=== PATIENT | male | born 1940 | race Caucasian/White ===

== ENCOUNTER 2019-05-18 15:39 | Inpatient (IN) ==
[2019-05-18 16:00] LABS: Basophils # 0.1 K/mcL (0.0-0.2); Basophils % 0.3 %; Eosinophils % 0.1 %; Hematocrit 39.3 % (37.5-50.1); Hemoglobin 13.6 g/dL (12.9-16.9); Immature Granulocytes % 0.3 % (0-4); Lymphocytes # 0.8 K/mcL (0.6-4.6); Lymphocytes % 4.8 %; Mean Corpuscular HGB Conc 34.6 g/dL (31.6-35.5); Mean Corpuscular Hemoglobin 32.5 pg (28.0-33.3); Mean Corpuscular Volume 93.8 fL (83.0-100.0); Mean Platelet Volume 9.1 fL (9.4-12.4); Monocytes # 1.3 K/mcL (0.0-1.3); Monocytes % 7.5 %; Neutrophils # 15.2 K/mcL (1.6-8.9); Platelet Count 267 K/mcL (140-400); Red Blood Count 4.19 M/mcL (4.19-5.50); Red Cell Distribution Width 11.8 % (11.5-14.5); White Blood Count 17.4 K/mcL (4.3-11.1)
[2019-05-18 16:02] LABS: INR 1.1; Prothrombin Time 12.2 Seconds (9.4-12.1)
[2019-05-18 16:05] LABS: Activated Partial Thrombo Time 30.6 Seconds (26.0-36.0)
[2019-05-18 16:20] LABS: BUN/Creatinine Ratio 26 (6-26); Blood Urea Nitrogen 24 mg/dL (8-23); Calcium 9.6 mg/dL (8.6-10.3); Carbon Dioxide 25 mEq/L (23-29); Chloride 104 mEq/L (98-107); Glucose 329 mg/dL (70-105); Osmolality,Calculated 303 (280-300); Potassium 4.4 mEq/L (3.5-5.1); Sodium 138 mEq/L (136-145); Troponin I < 0.03 ng/mL (< 0.04); eGFR For African Americans > 60 (> 60); eGFR For Non-African Americans > 60 (> 60)
[2019-05-18] MEDS ORDERED: *HR* OxyCODONE/APAP 5/325 TABLET PO ONE (17:31)
[2019-05-18] MEDS ORDERED: Naloxone 0.4 MG/ML INJ IVP PRN (17:42)
[2019-05-18] MEDS ORDERED: 0.9 % Sodium Chloride w KCl 20 MEQ/1,000 ML MLS IVC SCH (17:45)
[2019-05-18] MEDS ORDERED: Morphine Sulfate 2 MG/ML SYRINGE IVP PRN (17:45)
[2019-05-18] MEDS ORDERED: Carbidopa/Levodopa ER 50/200 TABLET PO SCH (21:00)
[2019-05-19] MEDS ORDERED: Insulin DETEMIR 100 UNIT/ML X5UNITS SQ ONE (08:39)
[2019-05-19 09:26] LABS: Basophils % 0.3 %; Eosinophils % 0.1 %; Hematocrit 35.4 % (37.5-50.1); Immature Granulocytes % 0.2 % (0-4); Lymphocytes # 0.9 K/mcL (0.6-4.6); Lymphocytes % 8.9 %; Mean Corpuscular HGB Conc 33.9 g/dL (31.6-35.5); Mean Corpuscular Hemoglobin 32.8 pg (28.0-33.3); Mean Corpuscular Volume 96.7 fL (83.0-100.0); Mean Platelet Volume 9.2 fL (9.4-12.4); Monocytes % 9.8 %; Neutrophils # 8.2 K/mcL (1.6-8.9); Platelet Count 260 K/mcL (140-400); Red Blood Count 3.66 M/mcL (4.19-5.50); Red Cell Distribution Width 12.1 % (11.5-14.5); Segmented Neutrophils % 80.7 %; White Blood Count 10.2 K/mcL (4.3-11.1)
[2019-05-19 09:44] LABS: BUN/Creatinine Ratio 27 (6-26); Blood Urea Nitrogen 24 mg/dL (8-23); Calcium 9.1 mg/dL (8.6-10.3); Carbon Dioxide 25 mEq/L (23-29); Chloride 106 mEq/L (98-107); Glucose 229 mg/dL (70-105); Osmolality,Calculated 299 (280-300); Potassium 4.3 mEq/L (3.5-5.1); Sodium 139 mEq/L (136-145); eGFR For African Americans > 60 (> 60); eGFR For Non-African Americans > 60 (> 60)
[2019-05-19] MEDS: Metoprolol XL (24 HR) Succ 50 MG TAB.ER.24H PO SCH (09:51)
[2019-05-19] MEDS: Carbidopa/Levodopa ER 50/200 TABLET PO SCH ×2 (09:51→20:03)
[2019-05-19] MEDS: Cholecalciferol (D-3) 1,000 UNIT (25MCG) TABLET PO SCH (09:51)
[2019-05-19] MEDS: Multivit/Ca/Min/Fe/FA 1 TAB TABLET PO SCH (09:51)
[2019-05-19] MEDS: Insulin LISPRO 300 UNITS/3 ML VIAL SQ SCH ×3 (12:29→19:41)
[2019-05-19] MEDS ORDERED: *HR* Dextrose 50 % in Water (Syg) 50 ML SYRINGE IVP PRN (15:03)
[2019-05-19] MEDS ORDERED: Dextrose Gel 15 GM/37.5 ML TUBE PO PRN ×2 (15:03)
[2019-05-19] MEDS ORDERED: D5% in Water 1,000 ML IVC PRN (15:03)
[2019-05-19] MEDS: Insulin DETEMIR 100 UNIT/ML X5UNITS SQ SCH (20:03)
[2019-05-20 01:10] LABS: Basophils # 0.1 K/mcL (0.0-0.2); Basophils % 0.4 %; Eosinophils % 0.2 %; Hematocrit 33.7 % (37.5-50.1); Hemoglobin 11.6 g/dL (12.9-16.9); Immature Granulocytes % 0.3 % (0-4); Lymphocytes # 1.1 K/mcL (0.6-4.6); Lymphocytes % 7.9 %; Mean Corpuscular HGB Conc 34.4 g/dL (31.6-35.5); Mean Corpuscular Hemoglobin 33.4 pg (28.0-33.3); Mean Corpuscular Volume 97.1 fL (83.0-100.0); Mean Platelet Volume 9.3 fL (9.4-12.4); Monocytes # 1.2 K/mcL (0.0-1.3); Monocytes % 8.7 %; Neutrophils # 11.6 K/mcL (1.6-8.9); Platelet Count 256 K/mcL (140-400); Red Blood Count 3.47 M/mcL (4.19-5.50); Red Cell Distribution Width 12.2 % (11.5-14.5); Segmented Neutrophils % 82.5 %
[2019-05-20] MEDS: Insulin LISPRO 300 UNITS/3 ML VIAL SQ SCH ×4 (08:33→21:19)
[2019-05-20] MEDS: Multivit/Ca/Min/Fe/FA 1 TAB TABLET PO SCH (08:34)
[2019-05-20] MEDS: Carbidopa/Levodopa ER 50/200 TABLET PO SCH ×2 (08:34→20:18)
[2019-05-20] MEDS: Cholecalciferol (D-3) 1,000 UNIT (25MCG) TABLET PO SCH (08:34)
[2019-05-20] MEDS: Metoprolol XL (24 HR) Succ 50 MG TAB.ER.24H PO SCH (08:34)
[2019-05-20 14:37] LABS: Bilirubin,Urine Negative (Negative); Blood,Urine Negative (Negative); Clarity,Urine Clear (Clear); Color,Urine Yellow (Yellow); Glucose,Urine (UA) 250 mg/dL (Normal); Ketones,Urine Negative (Negative); Leukocyte Esterase,Urine Negative (Negative); Nitrite,Urine Negative (Negative); Protein,Urine Negative (Neg-Trace); Urobilinogen,Urine Normal (Normal)
[2019-05-20] MEDS: Insulin DETEMIR 100 UNIT/ML X5UNITS SQ SCH (20:19)
[2019-05-20] MEDS ORDERED: *HR* LORazepam 2 MG/ML VIAL IVP ONE (22:08)
[2019-05-20] MEDS ORDERED: *HR* LORazepam 2 MG/ML VIAL ONE (22:10)
[2019-05-21] MEDS ORDERED: Furosemide 40 MG/4 ML VIAL IVP ONE (00:39)
[2019-05-21 01:11] LABS: BUN/Creatinine Ratio 41 (6-26); Blood Urea Nitrogen 39 mg/dL (8-23); Calcium 9.6 mg/dL (8.6-10.3); Carbon Dioxide 27 mEq/L (23-29); Chloride 103 mEq/L (98-107); Glucose 146 mg/dL (70-105); Osmolality,Calculated 294 (280-300); Potassium 4.2 mEq/L (3.5-5.1); Sodium 136 mEq/L (136-145); eGFR For African Americans > 60 (> 60); eGFR For Non-African Americans > 60 (> 60)
[2019-05-21 01:13] LABS: Troponin I < 0.03 ng/mL (< 0.04)
[2019-05-21 04:49] LABS: White Blood Count 11.7 K/mcL (4.3-11.1)
[2019-05-21 04:50] LABS: Basophils % 0.3 %; Eosinophils # 0.1 K/mcL (0.0-0.6); Eosinophils % 0.9 %; Hematocrit 32.3 % (37.5-50.1); Hemoglobin 10.8 g/dL (12.9-16.9); Immature Granulocytes % 0.3 % (0-4); Lymphocytes # 1.1 K/mcL (0.6-4.6); Mean Corpuscular HGB Conc 33.4 g/dL (31.6-35.5); Mean Corpuscular Hemoglobin 32.1 pg (28.0-33.3); Mean Corpuscular Volume 96.1 fL (83.0-100.0); Mean Platelet Volume 9.2 fL (9.4-12.4); Monocytes # 0.8 K/mcL (0.0-1.3); Monocytes % 6.9 %; Neutrophils # 9.7 K/mcL (1.6-8.9); Platelet Count 259 K/mcL (140-400); Red Blood Count 3.36 M/mcL (4.19-5.50); Segmented Neutrophils % 82.6 %
[2019-05-21 05:09] LABS: BUN/Creatinine Ratio 38 (6-26); Blood Urea Nitrogen 38 mg/dL (8-23); Calcium 9.9 mg/dL (8.6-10.3); Carbon Dioxide 28 mEq/L (23-29); Chloride 102 mEq/L (98-107); Glucose 75 mg/dL (70-105); Osmolality,Calculated 296 (280-300); Potassium 3.6 mEq/L (3.5-5.1); Sodium 139 mEq/L (136-145); eGFR For African Americans > 60 (> 60); eGFR For Non-African Americans > 60 (> 60)
[2019-05-21] MEDS ORDERED: Ipratropium/Albuterol Neb 3 ML IH STA (06:46)
[2019-05-21] MEDS: Metoprolol XL (24 HR) Succ 50 MG TAB.ER.24H PO SCH (06:50)
[2019-05-21] MEDS ORDERED: *HR* Propofol 200 MG/20 ML VIAL IVP ONE (07:01)
[2019-05-21] MEDS ORDERED: *HR* FentaNYL (PF) 100 MCG/2 ML VIAL ONE (07:02)
[2019-05-21] MEDS ORDERED: Lidocaine -MPF 2% 2 ML VIAL ONE (07:02)
[2019-05-21] MEDS ORDERED: Ondansetron 4 MG/2 ML VIAL ONE (07:02)
[2019-05-21] MEDS ORDERED: Dexamethasone 4 MG/ML VIAL ONE (07:02)
[2019-05-21] MEDS ORDERED: *HR* Midazolam HCl 2 MG/2 ML VIAL ONE (07:02)
[2019-05-21] MEDS ORDERED: *HR* Succinylcholine 200 MG/10 ML VIAL IVP ONE (07:02)
[2019-05-21] MEDS ORDERED: *HR* Rocuronium Bromide 50 MG/5 ML VIAL ONE (07:02)
[2019-05-21] MEDS ORDERED: Ethanol\\Acetic Acid\\Na Ace\\Ben 1,000 ML IRRIG.SOLN IR ONE (07:03)
[2019-05-21] MEDS: Insulin LISPRO 300 UNITS/3 ML VIAL SQ SCH ×4 (07:30→20:43)
[2019-05-21] MEDS ORDERED: Acetaminophen IV 1,000 MG/100 ML INFUS..BTL ONE (07:42)
[2019-05-21] MEDS ORDERED: *HR* Etomidate 40 MG/20 ML VIAL IVP ONE (07:54)
[2019-05-21] MEDS ORDERED: *HR* PHENYLEPHRINE 1,000 MCG/10 ML SYRINGE IVP ONE ×2 (08:07→08:56)
[2019-05-21] MEDS ORDERED: CeFAZolin Syr 2,000MG/20 ML 2,000 MG/20 ML SYRINGE IVPB ONE (08:13)
[2019-05-21] MEDS ORDERED: *HR* HYDROMORPHONE 2 MG/ML VIAL ONE (08:50)
[2019-05-21] MEDS ORDERED: *HR* Dextrose 50 % in Water (Syg) 50 ML SYRINGE IVP PRN (10:56)
[2019-05-21] MEDS ORDERED: Ondansetron 4 MG/2 ML VIAL IVP PRN (10:56)
[2019-05-21] MEDS ORDERED: MOM Conc 10 ML UD.LIQ PO PRN (10:56)
[2019-05-21] MEDS ORDERED: Sennosides 8.6 MG TABLET PO PRN (10:56)
[2019-05-21] MEDS ORDERED: D5% in Water 1,000 ML IVC PRN (10:56)
[2019-05-21] MEDS ORDERED: Dextrose Gel 15 GM/37.5 ML TUBE PO PRN ×2 (10:56)
[2019-05-21] MEDS ORDERED: Naloxone 0.4 MG/ML INJ IVP PRN (10:56)
[2019-05-21] MEDS ORDERED: Isovue-370 500 ML BOTTLE IVP ONE (11:15)
[2019-05-21] MEDS: Piperacillin/Tazobactam 3.375 GM in 0.9 % Sodium Chloride Mini Bag 100 ML IVPB SCH ×2 (12:30→20:40)
[2019-05-21] MEDS ORDERED: ceFAZolin 2,000 MG in 0.9 % Sodium Chloride 100 ML IVPB SCH (16:00)
[2019-05-21] MEDS: Ringers Solution, Lactated 1,000 ML IVC SCH (17:42)
[2019-05-21] MEDS: Insulin DETEMIR 100 UNIT/ML X5UNITS SQ SCH (20:39)
[2019-05-21] MEDS: Carbidopa/Levodopa ER 50/200 TABLET PO SCH (20:41)
[2019-05-22 02:23] LABS: Eosinophils % 0.1 %; Hematocrit 28.3 % (37.5-50.1); Hemoglobin 9.6 g/dL (12.9-16.9); Immature Granulocytes % 0.1 % (0-4); Lymphocytes # 0.6 K/mcL (0.6-4.6); Lymphocytes % 6.3 %; Mean Corpuscular HGB Conc 33.9 g/dL (31.6-35.5); Mean Corpuscular Hemoglobin 33.1 pg (28.0-33.3); Mean Corpuscular Volume 97.6 fL (83.0-100.0); Mean Platelet Volume 9.7 fL (9.4-12.4); Monocytes # 0.8 K/mcL (0.0-1.3); Monocytes % 8.2 %; Neutrophils # 7.9 K/mcL (1.6-8.9); Platelet Count 240 K/mcL (140-400); Red Cell Distribution Width 11.9 % (11.5-14.5); Segmented Neutrophils % 85.3 %; White Blood Count 9.2 K/mcL (4.3-11.1)
[2019-05-22 03:11] LABS: BUN/Creatinine Ratio 43 (6-26); Blood Urea Nitrogen 36 mg/dL (8-23); Calcium 8.6 mg/dL (8.6-10.3); Carbon Dioxide 22 mEq/L (23-29); Chloride 105 mEq/L (98-107); Glucose 117 mg/dL (70-105); Osmolality,Calculated 293 (280-300); Sodium 137 mEq/L (136-145); eGFR For African Americans > 60 (> 60); eGFR For Non-African Americans > 60 (> 60)
[2019-05-22] MEDS: Piperacillin/Tazobactam 3.375 GM in 0.9 % Sodium Chloride Mini Bag 100 ML IVPB SCH ×3 (04:43→21:17)
[2019-05-22] MEDS: *HR* OxyCODONE/APAP 5/325 TABLET PO PRN ×2 (08:12→23:50)
[2019-05-22] MEDS: Multivit/Ca/Min/Fe/FA 1 TAB TABLET PO SCH (08:13)
[2019-05-22] MEDS: Carbidopa/Levodopa ER 50/200 TABLET PO SCH ×2 (08:13→21:17)
[2019-05-22] MEDS: Metoprolol XL (24 HR) Succ 50 MG TAB.ER.24H PO SCH (08:13)
[2019-05-22] MEDS: Cholecalciferol (D-3) 1,000 UNIT (25MCG) TABLET PO SCH (08:13)
[2019-05-22] MEDS: Insulin LISPRO 300 UNITS/3 ML VIAL SQ SCH ×4 (08:14→21:16)
[2019-05-22] MEDS ORDERED: Haloperidol Lactate 5 MG/ML VIAL IVP ONE (14:27)
[2019-05-22] MEDS: Ringers Solution, Lactated 1,000 ML IVC SCH (16:25)
[2019-05-22] MEDS: Insulin DETEMIR 100 UNIT/ML X5UNITS SQ SCH (23:51)
[2019-05-23 02:33] LABS: Basophils % 0.2 %; Eosinophils # 0.1 K/mcL (0.0-0.6); Eosinophils % 1.5 %; Hematocrit 27.4 % (37.5-50.1); Hemoglobin 9.5 g/dL (12.9-16.9); Immature Granulocytes % 0.2 % (0-4); Mean Corpuscular HGB Conc 34.7 g/dL (31.6-35.5); Mean Corpuscular Hemoglobin 32.9 pg (28.0-33.3); Mean Corpuscular Volume 94.8 fL (83.0-100.0); Monocytes # 0.8 K/mcL (0.0-1.3); Monocytes % 8.8 %; Neutrophils # 7.1 K/mcL (1.6-8.9); Platelet Count 277 K/mcL (140-400); Red Blood Count 2.89 M/mcL (4.19-5.50); Segmented Neutrophils % 78.3 %; White Blood Count 9.1 K/mcL (4.3-11.1)
[2019-05-23 02:50] LABS: BUN/Creatinine Ratio 37 (6-26); Blood Urea Nitrogen 26 mg/dL (8-23); Calcium 8.6 mg/dL (8.6-10.3); Carbon Dioxide 29 mEq/L (23-29); Chloride 107 mEq/L (98-107); Glucose 107 mg/dL (70-105); Osmolality,Calculated 297 (280-300); Potassium 3.5 mEq/L (3.5-5.1); Sodium 141 mEq/L (136-145); eGFR For African Americans > 60 (> 60); eGFR For Non-African Americans > 60 (> 60)
[2019-05-23] MEDS: Piperacillin/Tazobactam 3.375 GM in 0.9 % Sodium Chloride Mini Bag 100 ML IVPB SCH ×2 (04:29→11:42)
[2019-05-23] MEDS: Ringers Solution, Lactated 1,000 ML IVC SCH (06:30)
[2019-05-23] MEDS: Carbidopa/Levodopa ER 50/200 TABLET PO SCH ×2 (07:57→20:11)
[2019-05-23] MEDS: Cholecalciferol (D-3) 1,000 UNIT (25MCG) TABLET PO SCH (07:57)
[2019-05-23] MEDS: Metoprolol XL (24 HR) Succ 50 MG TAB.ER.24H PO SCH (07:57)
[2019-05-23] MEDS: Multivit/Ca/Min/Fe/FA 1 TAB TABLET PO SCH (07:57)
[2019-05-23] MEDS: Insulin LISPRO 300 UNITS/3 ML VIAL SQ SCH ×4 (07:58→20:29)
[2019-05-23] MEDS ORDERED: Aminoglycoside Consult 1 EACH MC ONE (08:59)
[2019-05-23] MEDS: *HR* Enoxaparin 40 MG/0.4 ML SYRINGE SQ SCH (11:41)
[2019-05-23] MEDS: *HR* OxyCODONE/APAP 5/325 TABLET PO PRN (15:56)
[2019-05-23] MEDS: QUEtiapine Fumarate 25 MG TABLET PO SCH (20:11)
[2019-05-23] MEDS: Insulin DETEMIR 100 UNIT/ML X5UNITS SQ SCH (20:30)
[2019-05-24] MEDS: *HR* Enoxaparin 40 MG/0.4 ML SYRINGE SQ SCH (06:29)
[2019-05-24] MEDS: Carbidopa/Levodopa ER 50/200 TABLET PO SCH ×3 (09:03→22:36)
[2019-05-24] MEDS: Metoprolol XL (24 HR) Succ 50 MG TAB.ER.24H PO SCH (09:03)
[2019-05-24] MEDS: Multivit/Ca/Min/Fe/FA 1 TAB TABLET PO SCH ×2 (09:03→22:36)
[2019-05-24] MEDS: Cholecalciferol (D-3) 1,000 UNIT (25MCG) TABLET PO SCH ×2 (09:03→22:37)
[2019-05-24] MEDS: Insulin LISPRO 300 UNITS/3 ML VIAL SQ SCH ×4 (09:24→20:45)
[2019-05-24] MEDS: *HR* OxyCODONE/APAP 5/325 TABLET PO PRN (12:47)
[2019-05-24] MEDS: QUEtiapine Fumarate 25 MG TABLET PO SCH (20:37)
[2019-05-24] MEDS: Insulin DETEMIR 100 UNIT/ML X5UNITS SQ SCH (20:45)
[2019-05-24] MEDS: Ringers Solution, Lactated 1,000 ML IVC SCH (22:38)
[2019-05-25] MEDS: *HR* Enoxaparin 40 MG/0.4 ML SYRINGE SQ SCH (04:25)
[2019-05-25 04:55] LABS: Hematocrit 29.9 % (37.5-50.1); Hemoglobin 9.7 g/dL (12.9-16.9); Mean Corpuscular HGB Conc 32.4 g/dL (31.6-35.5); Mean Corpuscular Hemoglobin 32.6 pg (28.0-33.3); Mean Corpuscular Volume 100.3 fL (83.0-100.0); Mean Platelet Volume 8.8 fL (9.4-12.4); Platelet Count 246 K/mcL (140-400); Red Blood Count 2.98 M/mcL (4.19-5.50); Red Cell Distribution Width 12.1 % (11.5-14.5); White Blood Count 7.3 K/mcL (4.3-11.1)
[2019-05-25 04:58] LABS: BUN/Creatinine Ratio 32 (6-26); Blood Urea Nitrogen 20 mg/dL (8-23); Calcium 8.5 mg/dL (8.6-10.3); Carbon Dioxide 25 mEq/L (23-29); Chloride 110 mEq/L (98-107); Glucose 48 mg/dL (70-105); Magnesium 1.9 mg/dL (1.6-2.6); Osmolality,Calculated 292 (280-300); Potassium 3.6 mEq/L (3.5-5.1); Sodium 141 mEq/L (136-145); eGFR For African Americans > 60 (> 60); eGFR For Non-African Americans > 60 (> 60)
[2019-05-25] MEDS: Cholecalciferol (D-3) 1,000 UNIT (25MCG) TABLET PO SCH (10:00)
[2019-05-25] MEDS: Multivit/Ca/Min/Fe/FA 1 TAB TABLET PO SCH (10:00)
[2019-05-25] MEDS: Metoprolol XL (24 HR) Succ 50 MG TAB.ER.24H PO SCH (10:01)
[2019-05-25] MEDS: Insulin LISPRO 300 UNITS/3 ML VIAL SQ SCH ×3 (10:01→17:51)
[2019-05-25] MEDS: Carbidopa/Levodopa ER 50/200 TABLET PO SCH (10:01)
[2019-05-25 11:38] VITALS: BP 149/77
[2019-05-25] MEDS: *HR* OxyCODONE/APAP 5/325 TABLET PO PRN (13:51)
== END 2019-05-25 18:10 | DRG 483 ==
LOC: EMEROOARM 15:39 → 3NENU 15:39 → SUATTDRO 18:30 → 3NENU 19:00 → SUATTDRO 05-21 08:18 → 2NNU 05-21 10:49 → 3NENU 05-25 13:51
PROVIDERS: ADMIT Family Medicine; ATTEND Internal Medicine

== ENCOUNTER 2020-02-08 18:09 | Inpatient (IN) ==
[2020-02-08] MEDS ORDERED: Isovue-370 500 ML BOTTLE IVP ONE ×2 (18:24→18:25)
[2020-02-08] MEDS ORDERED: Aspirin 81 MG TAB.CHEW PO ONE (18:24)
[2020-02-08 19:13] LABS: Hematocrit 42.2 % (37.5-50.1); Mean Corpuscular HGB Conc 33.2 g/dL (31.6-35.5); Mean Corpuscular Hemoglobin 31.3 pg (28.0-33.3); Mean Corpuscular Volume 94.4 fL (83.0-100.0); Mean Platelet Volume 9.6 fL (9.4-12.4); Platelet Count 366 K/mcL (140-400); Red Blood Count 4.47 M/mcL (4.19-5.50); Red Cell Distribution Width 12.7 % (11.5-14.5); White Blood Count 29.9 K/mcL (4.3-11.1)
[2020-02-08 19:14] LABS: INR 1.2; Prothrombin Time 14.3 Seconds (9.4-12.1)
[2020-02-08 19:17] LABS: Activated Partial Thrombo Time 29.1 Seconds (26.0-36.0)
[2020-02-08 19:26] LABS: BUN/Creatinine Ratio 25 (6-26); Blood Urea Nitrogen 32 mg/dL (8-23); Calcium 10.6 mg/dL (8.6-10.3); Carbon Dioxide 25 mEq/L (23-29); Chloride 99 mEq/L (98-107); Creatine Kinase 53 Units/L (30-223); Ethanol < 10 mg/dL (Less than 10); Glucose 315 mg/dL (70-105); Osmolality,Calculated 301 (280-300); Potassium 4.7 mEq/L (3.5-5.1); Sodium 136 mEq/L (136-145); eGFR For African Americans > 60 (> 60); eGFR For Non-African Americans 55 (> 60)
[2020-02-08 19:30] LABS: Troponin I 0.04 ng/mL (< 0.04)
[2020-02-08 19:42] LABS: Bilirubin,Urine Negative (Negative); Blood,Urine Small (Negative); Clarity,Urine Clear (Clear); Color,Urine Colorless (Yellow); Glucose,Urine (UA) 70 mg/dL (Normal); Ketones,Urine Negative (Negative); Leukocyte Esterase,Urine Large (Negative); Mucus,Urine Few per lpf (None-Few); Nitrite,Urine Positive (Negative); Protein,Urine Trace mg/dL (Neg-Trace); RBC,Urine 30-50 per hpf (0-3); Specific Gravity,Urine > 1.030 (1.010-1.025); Squamous Epithelial Cell,Urine Few per hpf (None-Few); Urobilinogen,Urine Normal (Normal); WBC,Urine 30-50 per hpf (0-3)
[2020-02-08] MEDS ORDERED: Piperacillin/Tazobactam 3.375 GM in Water for inj. (sterile) 20 ML IVP ONE (19:51)
[2020-02-08 21:03] LABS: Alanine Aminotransferase 16 Units/L (7-52); Albumin 4.4 g/dL (3.5-5.7); Albumin/Globulin Ratio 1.2 (1.1-2.2); Alkaline Phosphatase 107 Units/L (34-104); Aspartate Amino Transferase 21 Units/L (13-39); Bilirubin,Direct 0.2 mg/dL (0.0-0.2); Bilirubin,Indirect 0.8 mg/dL (0.0-1.0); Globulin 3.7 g/dL (2.4-3.5); Lipase 11 Units/L (11-82); Total Protein 8.1 g/dL (6.4-8.9)
[2020-02-08] MEDS ORDERED: 0.9 % Sodium Chloride 1,000 ML IVC ONE (21:57)
[2020-02-09] MEDS ORDERED: Naloxone 0.4 MG/ML INJ IVP PRN (00:56)
[2020-02-09] MEDS ORDERED: Ondansetron 4 MG/2 ML VIAL IVP PRN (00:56)
[2020-02-09] MEDS ORDERED: 0.9 % Sodium Chloride 1,000 ML IVC SCH (01:00)
[2020-02-09] MEDS ORDERED: Dextrose Gel 15 GM/37.5 ML TUBE PO PRN ×2 (01:49)
[2020-02-09] MEDS ORDERED: D5% in Water 1,000 ML IVC PRN (01:49)
[2020-02-09] MEDS ORDERED: *HR* Dextrose 50 % in Water (Vial) 50 ML VIAL IVP PRN (01:49)
[2020-02-09 02:13] LABS: Basophils # 0.1 K/mcL (0.0-0.2); Basophils % 0.2 %; Hematocrit 40.2 % (37.5-50.1); Hemoglobin 13.3 g/dL (12.9-16.9); Lymphocytes # 0.9 K/mcL (0.6-4.6); Lymphocytes % 3.9 %; Mean Corpuscular HGB Conc 33.1 g/dL (31.6-35.5); Mean Corpuscular Hemoglobin 31.5 pg (28.0-33.3); Mean Corpuscular Volume 95.3 fL (83.0-100.0); Mean Platelet Volume 9.4 fL (9.4-12.4); Monocytes # 1.3 K/mcL (0.0-1.3); Monocytes % 5.9 %; Platelet Count 300 K/mcL (140-400); Red Blood Count 4.22 M/mcL (4.19-5.50); Red Cell Distribution Width 12.8 % (11.5-14.5); White Blood Count 22.5 K/mcL (4.3-11.1)
[2020-02-09 02:35] LABS: Alanine Aminotransferase 14 Units/L (7-52); Albumin 3.7 g/dL (3.5-5.7); Albumin/Globulin Ratio 1.1 (1.1-2.2); Alkaline Phosphatase 100 Units/L (34-104); Aspartate Amino Transferase 16 Units/L (13-39); BUN/Creatinine Ratio 28 (6-26); Bilirubin,Total 1.1 mg/dL (0.3-1.0); Blood Urea Nitrogen 27 mg/dL (8-23); Calcium 9.8 mg/dL (8.6-10.3); Carbon Dioxide 25 mEq/L (23-29); Chloride 103 mEq/L (98-107); Globulin 3.4 g/dL (2.4-3.5); Glucose 181 mg/dL (70-105); Osmolality,Calculated 296 (280-300); Potassium 4.4 mEq/L (3.5-5.1); Sodium 138 mEq/L (136-145); Total Protein 7.1 g/dL (6.4-8.9); eGFR For African Americans > 60 (> 60); eGFR For Non-African Americans > 60 (> 60)
[2020-02-09] MEDS: Insulin LISPRO 300 UNITS/3 ML VIAL SUBQ SCH ×6 (03:28→21:11)
[2020-02-09] MEDS: *HR* Heparin 5,000 UNIT/ML VIAL SQ SCH ×3 (06:49→21:11)
[2020-02-09] MEDS: Piperacillin/Tazobactam 3.375 GM in 0.9 % Sodium Chloride Mini Bag 100 ML IVPB SCH ×2 (09:13→18:17)
[2020-02-09] MEDS ORDERED: Atropine 1% Opth Drops 100 DROP/5 ML BOTTLE SL PRN (16:27)
[2020-02-09] MEDS: Acetaminophen 325 MG TABLET PO PRN (21:10)
[2020-02-10] MEDS: Insulin LISPRO 300 UNITS/3 ML VIAL SUBQ SCH ×6 (00:17→21:06)
[2020-02-10] MEDS: Piperacillin/Tazobactam 3.375 GM in 0.9 % Sodium Chloride Mini Bag 100 ML IVPB SCH ×4 (00:18→23:18)
[2020-02-10 05:44] LABS: Basophils % 0.2 %; Eosinophils % 0.1 %; Hematocrit 31.4 % (37.5-50.1); Immature Granulocytes % 0.5 % (0-4); Lymphocytes # 0.4 K/mcL (0.6-4.6); Lymphocytes % 3.6 %; Mean Corpuscular HGB Conc 33.1 g/dL (31.6-35.5); Mean Corpuscular Hemoglobin 31.4 pg (28.0-33.3); Mean Corpuscular Volume 94.9 fL (83.0-100.0); Mean Platelet Volume 9.2 fL (9.4-12.4); Monocytes # 0.3 K/mcL (0.0-1.3); Monocytes % 2.9 %; Platelet Count 171 K/mcL (140-400); Red Blood Count 3.31 M/mcL (4.19-5.50); Red Cell Distribution Width 12.8 % (11.5-14.5); Segmented Neutrophils % 92.7 %; White Blood Count 11.9 K/mcL (4.3-11.1)
[2020-02-10 05:45] LABS: Hemoglobin 10.4 g/dL (12.9-16.9)
[2020-02-10 06:02] LABS: BUN/Creatinine Ratio 29 (6-26); Blood Urea Nitrogen 27 mg/dL (8-23); Calcium 9.1 mg/dL (8.6-10.3); Carbon Dioxide 23 mEq/L (23-29); Chloride 105 mEq/L (98-107); Glucose 137 mg/dL (70-105); Osmolality,Calculated 289 (280-300); Potassium 3.5 mEq/L (3.5-5.1); Sodium 136 mEq/L (136-145); eGFR For African Americans > 60 (> 60); eGFR For Non-African Americans > 60 (> 60)
[2020-02-10] MEDS: *HR* Heparin 5,000 UNIT/ML VIAL SQ SCH ×3 (06:12→21:05)
[2020-02-10] MEDS ORDERED: NON-FORMULARY MEDICATION 1 EACH EACH (Vit C/E/Zn/Coppr/Lutein/Zeaxan [Preservision Areds 2 PO SCH (09:00)
[2020-02-10] MEDS ORDERED: NON-FORMULARY MEDICATION 1 EACH EACH (Calcium Carbonate/Vitamin D3 [Oyster Shell Calcium-V PO SCH (09:00)
[2020-02-10] MEDS: Cholecalciferol (D-3) 1,000 UNIT (25MCG) TABLET PO SCH (09:12)
[2020-02-10] MEDS: Multivit/Ca/Min/Fe/FA 1 TAB TABLET PO SCH (09:12)
[2020-02-10] MEDS: Rivastigmine Patch 9.5 MG PATCH.TD24 TD SCH (09:12)
[2020-02-10] MEDS: Acetaminophen 325 MG TABLET PO PRN (09:26)
[2020-02-10 20:08] LABS: ABG Base Excess -1 mEq/L (-2 to 3); ABG HCO3 22 mEq/L (21-27); ABG Oxygen Saturation 95 % (95-98); ABG PCO2 31 mmHg (35-45); ABG PH 7.45 pH Units (7.32-7.45); ABG PO2 71 mmHg (85-104); ABG TCO2 23 mEq/L (20-26)
[2020-02-10] MEDS ORDERED: Acetaminophen IV 1,000 MG/100 ML BAG IVPB ONE (20:30)
[2020-02-11] MEDS: Insulin LISPRO 300 UNITS/3 ML VIAL SUBQ SCH ×5 (00:15→18:28)
[2020-02-11 05:15] LABS: Basophils % 0.1 %; Eosinophils % 0.1 %; Hematocrit 29.5 % (37.5-50.1); Hemoglobin 9.4 g/dL (12.9-16.9); Immature Granulocytes % 0.5 % (0-4); Lymphocytes # 0.3 K/mcL (0.6-4.6); Lymphocytes % 3.5 %; Mean Corpuscular HGB Conc 31.9 g/dL (31.6-35.5); Mean Corpuscular Hemoglobin 31.1 pg (28.0-33.3); Mean Corpuscular Volume 97.7 fL (83.0-100.0); Mean Platelet Volume 9.4 fL (9.4-12.4); Monocytes # 0.7 K/mcL (0.0-1.3); Monocytes % 7.2 %; Neutrophils # 8.6 K/mcL (1.6-8.9); Platelet Count 143 K/mcL (140-400); Red Blood Count 3.02 M/mcL (4.19-5.50); Red Cell Distribution Width 12.9 % (11.5-14.5); Segmented Neutrophils % 88.6 %; White Blood Count 9.7 K/mcL (4.3-11.1)
[2020-02-11] MEDS: *HR* Heparin 5,000 UNIT/ML VIAL SQ SCH ×3 (05:30→21:24)
[2020-02-11 05:35] LABS: Alanine Aminotransferase 51 Units/L (7-52); Albumin/Globulin Ratio 1.1 (1.1-2.2); Alkaline Phosphatase 168 Units/L (34-104); Aspartate Amino Transferase 54 Units/L (13-39); BUN/Creatinine Ratio 30 (6-26); Bilirubin,Total 0.7 mg/dL (0.3-1.0); Blood Urea Nitrogen 36 mg/dL (8-23); Calcium 8.7 mg/dL (8.6-10.3); Carbon Dioxide 21 mEq/L (23-29); Chloride 106 mEq/L (98-107); Globulin 2.8 g/dL (2.4-3.5); Glucose 169 mg/dL (70-105); Osmolality,Calculated 294 (280-300); Potassium 3.7 mEq/L (3.5-5.1); Sodium 136 mEq/L (136-145); Total Protein 5.8 g/dL (6.4-8.9); eGFR For African Americans > 60 (> 60); eGFR For Non-African Americans 59 (> 60)
[2020-02-11] MEDS ORDERED: Morphine Sulfate 2 MG/ML SYRINGE IVP ONE (06:10)
[2020-02-11] MEDS: Piperacillin/Tazobactam 3.375 GM in 0.9 % Sodium Chloride Mini Bag 100 ML IVPB SCH ×2 (09:25→17:23)
[2020-02-11] MEDS: Rivastigmine Patch 9.5 MG PATCH.TD24 TD SCH (09:25)
[2020-02-11] MEDS: Multivit/Ca/Min/Fe/FA 1 TAB TABLET PO SCH (09:26)
[2020-02-11] MEDS: Cholecalciferol (D-3) 1,000 UNIT (25MCG) TABLET PO SCH (09:28)
[2020-02-11] MEDS ORDERED: E-Z-HD (BARIUM SULF) SUSPENSION PO ONE (13:12)
[2020-02-11] MEDS ORDERED: E-Z-PAQUE (BARIUM SULF) SUSP 1 BOTTLE PO ONE (13:12)
[2020-02-12] MEDS: *HR* Heparin 5,000 UNIT/ML VIAL SQ SCH ×3 (06:08→22:35)
[2020-02-12 07:06] LABS: Basophils % 0.2 %; Eosinophils # 0.1 K/mcL (0.0-0.6); Eosinophils % 1.2 %; Hematocrit 30.1 % (37.5-50.1); Hemoglobin 9.6 g/dL (12.9-16.9); Immature Granulocytes % 0.3 % (0-4); Lymphocytes # 0.7 K/mcL (0.6-4.6); Lymphocytes % 6.1 %; Mean Corpuscular HGB Conc 31.9 g/dL (31.6-35.5); Mean Corpuscular Hemoglobin 30.1 pg (28.0-33.3); Mean Corpuscular Volume 94.4 fL (83.0-100.0); Mean Platelet Volume 9.6 fL (9.4-12.4); Monocytes # 0.9 K/mcL (0.0-1.3); Monocytes % 7.8 %; Neutrophils # 9.8 K/mcL (1.6-8.9); Platelet Count 184 K/mcL (140-400); Red Blood Count 3.19 M/mcL (4.19-5.50); Red Cell Distribution Width 12.9 % (11.5-14.5); Segmented Neutrophils % 84.4 %; White Blood Count 11.6 K/mcL (4.3-11.1)
[2020-02-12 07:26] LABS: Alanine Aminotransferase 51 Units/L (7-52); Albumin 2.9 g/dL (3.5-5.7); Albumin/Globulin Ratio 0.9 (1.1-2.2); Alkaline Phosphatase 162 Units/L (34-104); Aspartate Amino Transferase 37 Units/L (13-39); BUN/Creatinine Ratio 36 (6-26); Bilirubin,Total 0.5 mg/dL (0.3-1.0); Blood Urea Nitrogen 34 mg/dL (8-23); Calcium 8.8 mg/dL (8.6-10.3); Carbon Dioxide 21 mEq/L (23-29); Chloride 107 mEq/L (98-107); Globulin 3.3 g/dL (2.4-3.5); Glucose 204 mg/dL (70-105); Osmolality,Calculated 297 (280-300); Potassium 3.4 mEq/L (3.5-5.1); Sodium 137 mEq/L (136-145); Total Protein 6.2 g/dL (6.4-8.9); eGFR For African Americans > 60 (> 60); eGFR For Non-African Americans > 60 (> 60)
[2020-02-12] MEDS: Multivit/Ca/Min/Fe/FA 1 TAB TABLET PO SCH (07:34)
[2020-02-12] MEDS: Cholecalciferol (D-3) 1,000 UNIT (25MCG) TABLET PO SCH (07:34)
[2020-02-12] MEDS: Rivastigmine Patch 9.5 MG PATCH.TD24 TD SCH (07:34)
[2020-02-12] MEDS: Piperacillin/Tazobactam 3.375 GM in 0.9 % Sodium Chloride Mini Bag 100 ML IVPB SCH ×2 (07:34)
[2020-02-12] MEDS: Insulin LISPRO 300 UNITS/3 ML VIAL SUBQ SCH ×3 (07:43→17:42)
[2020-02-12] MEDS: Insulin DETEMIR 100 UNIT/ML X5UNITS SUBQ SCH ×2 (09:21→22:36)
[2020-02-12] MEDS ORDERED: Insulin LISPRO 300 UNITS/3 ML VIAL SUBQ SCH (21:00)
[2020-02-12] MEDS: Acetaminophen 325 MG TABLET PO PRN (22:35)
[2020-02-13] MEDS: *HR* Heparin 5,000 UNIT/ML VIAL SQ SCH ×2 (05:48→14:44)
[2020-02-13] MEDS: Rivastigmine Patch 9.5 MG PATCH.TD24 TD SCH (10:09)
[2020-02-13] MEDS: Multivit/Ca/Min/Fe/FA 1 TAB TABLET PO SCH (10:09)
[2020-02-13] MEDS: Insulin DETEMIR 100 UNIT/ML X5UNITS SUBQ SCH (10:09)
[2020-02-13] MEDS: Cholecalciferol (D-3) 1,000 UNIT (25MCG) TABLET PO SCH (10:09)
[2020-02-13] MEDS: Insulin LISPRO 300 UNITS/3 ML VIAL SUBQ SCH ×3 (10:10→16:56)
[2020-02-13] MEDS ORDERED: Sennosides/Docusate Sodium TABLET PO SCH (17:13)
[2020-02-13 19:46] VITALS: BP 138/77
== END 2020-02-13 20:03 | DRG 698 ==
LOC: 3ANU 18:09 → EMEROOARM 18:09 → SUATTDRO 23:39 → 3ANU 02-09 01:05 → SUATTDRO 02-09 15:49
PROVIDERS: ADMIT Student in an Organized Health Care Education/Training Program; ATTEND Internal Medicine

== ENCOUNTER 2020-03-05 16:48 | Observation (INO) ==
[2020-03-05] MEDS ORDERED: Ondansetron 4 MG/2 ML VIAL IVP PRN (17:58)
[2020-03-05] MEDS ORDERED: Naloxone 0.4 MG/ML INJ IVP PRN (17:58)
[2020-03-05] MEDS ORDERED: 0.9 % Sodium Chloride 1,000 ML IVC SCH (18:00)
[2020-03-05] MEDS ORDERED: Atropine 1% Opth Drops 100 DROP/5 ML BOTTLE SL PRN (18:06)
[2020-03-05] MEDS ORDERED: Dextrose Gel 15 GM/37.5 ML TUBE PO PRN ×2 (18:22)
[2020-03-05] MEDS ORDERED: *HR* Dextrose 50 % in Water (Vial) 50 ML VIAL IVP PRN (18:22)
[2020-03-05] MEDS ORDERED: D5% in Water 1,000 ML IVC PRN (18:22)
[2020-03-05 18:49] LABS: INR 1.3; Prothrombin Time 14.7 Seconds (9.4-12.1)
[2020-03-05] MEDS: Famotidine 20 MG/2 ML VIAL IVP SCH (18:58)
[2020-03-05 20:26] LABS: Influenza A PCR Negative (Negative); Influenza B PCR Negative (Negative); Resp. Syncytial Virus PCR Negative (Negative)
[2020-03-05 20:41] LABS: SARS-CoV-2 by PCR (In House) Positive (Negative)
[2020-03-06] MEDS: Insulin LISPRO 300 UNITS/3 ML VIAL SUBQ SCH ×4 (00:02→17:45)
[2020-03-06] MEDS: Famotidine 20 MG/2 ML VIAL IVP SCH ×2 (05:44→17:52)
[2020-03-06] MEDS ORDERED: 0.9 % Sodium Chloride 1,000 ML IVC SCH (15:56)
[2020-03-06] MEDS: *HR* Heparin 5,000 UNIT/ML VIAL SQ SCH (17:52)
[2020-03-07] MEDS: Insulin LISPRO 300 UNITS/3 ML VIAL SUBQ SCH ×4 (00:40→17:15)
[2020-03-07] MEDS: *HR* Heparin 5,000 UNIT/ML VIAL SQ SCH ×2 (05:31→17:16)
[2020-03-07] MEDS: Famotidine 20 MG/2 ML VIAL IVP SCH ×2 (05:31→17:16)
[2020-03-07 06:46] LABS: Basophils % 0.4 %; Eosinophils # 0.1 K/mcL (0.0-0.6); Eosinophils % 1.4 %; Hematocrit 33.8 % (37.5-50.1); Immature Granulocytes % 0.4 % (0-4); Lymphocytes # 0.8 K/mcL (0.6-4.6); Lymphocytes % 9.5 %; Mean Corpuscular HGB Conc 32.5 g/dL (31.6-35.5); Mean Corpuscular Hemoglobin 29.9 pg (28.0-33.3); Mean Corpuscular Volume 91.8 fL (83.0-100.0); Mean Platelet Volume 8.8 fL (9.4-12.4); Monocytes # 0.7 K/mcL (0.0-1.3); Monocytes % 8.5 %; Neutrophils # 6.8 K/mcL (1.6-8.9); Platelet Count 332 K/mcL (140-400); Red Blood Count 3.68 M/mcL (4.19-5.50); Red Cell Distribution Width 12.3 % (11.5-14.5); Segmented Neutrophils % 79.8 %; White Blood Count 8.6 K/mcL (4.3-11.1)
[2020-03-07 07:05] LABS: BUN/Creatinine Ratio 45 (6-26); Blood Urea Nitrogen 24 mg/dL (8-23); Calcium 9.2 mg/dL (8.6-10.3); Carbon Dioxide 24 mEq/L (23-29); Chloride 112 mEq/L (98-107); Glucose 148 mg/dL (70-105); Magnesium 1.8 mg/dL (1.6-2.6); Osmolality,Calculated 311 (280-300); Phosphorous 2.2 mg/dL (2.7-4.5); Potassium 3.6 mEq/L (3.5-5.1); Sodium 147 mEq/L (136-145); eGFR For African Americans > 60 (> 60); eGFR For Non-African Americans > 60 (> 60)
[2020-03-07 12:58] LABS: BUN/Creatinine Ratio 38 (6-26); Blood Urea Nitrogen 22 mg/dL (8-23); Carbon Dioxide 28 mEq/L (23-29); Chloride 111 mEq/L (98-107); Glucose 166 mg/dL (70-105); Osmolality,Calculated 309 (280-300); Potassium 3.4 mEq/L (3.5-5.1); Sodium 146 mEq/L (136-145); eGFR For African Americans > 60 (> 60); eGFR For Non-African Americans > 60 (> 60)
[2020-03-08] MEDS: Insulin LISPRO 300 UNITS/3 ML VIAL SUBQ SCH ×4 (01:02→19:49)
[2020-03-08] MEDS: *HR* Heparin 5,000 UNIT/ML VIAL SQ SCH ×2 (05:55→19:50)
[2020-03-08] MEDS: Famotidine 20 MG/2 ML VIAL IVP SCH ×2 (05:55→10:54)
[2020-03-08 05:58] LABS: BUN/Creatinine Ratio 35 (6-26); Blood Urea Nitrogen 19 mg/dL (8-23); Calcium 9.3 mg/dL (8.6-10.3); Carbon Dioxide 26 mEq/L (23-29); Chloride 112 mEq/L (98-107); Glucose 185 mg/dL (70-105); Magnesium 1.8 mg/dL (1.6-2.6); Osmolality,Calculated 313 (280-300); Phosphorous 2.2 mg/dL (2.7-4.5); Potassium 3.2 mEq/L (3.5-5.1); Sodium 148 mEq/L (136-145); eGFR For African Americans > 60 (> 60); eGFR For Non-African Americans > 60 (> 60)
[2020-03-08 10:13] LABS: BUN/Creatinine Ratio 33 (6-26); Blood Urea Nitrogen 19 mg/dL (8-23); Calcium 9.1 mg/dL (8.6-10.3); Carbon Dioxide 28 mEq/L (23-29); Chloride 113 mEq/L (98-107); Glucose 229 mg/dL (70-105); Osmolality,Calculated 312 (280-300); Potassium 3.6 mEq/L (3.5-5.1); Sodium 146 mEq/L (136-145); eGFR For African Americans > 60 (> 60); eGFR For Non-African Americans > 60 (> 60)
[2020-03-08] MEDS: Potassium Chloride 20 MEQ in D5% in Water 1,000 ML IVC SCH (10:54)
[2020-03-08 15:05] LABS: BUN/Creatinine Ratio 31 (6-26); Blood Urea Nitrogen 18 mg/dL (8-23); Calcium 9.1 mg/dL (8.6-10.3); Carbon Dioxide 27 mEq/L (23-29); Chloride 112 mEq/L (98-107); Glucose 155 mg/dL (70-105); Osmolality,Calculated 307 (280-300); Potassium 3.8 mEq/L (3.5-5.1); Sodium 146 mEq/L (136-145); eGFR For African Americans > 60 (> 60); eGFR For Non-African Americans > 60 (> 60)
[2020-03-08 21:33] LABS: BUN/Creatinine Ratio 30 (6-26); Blood Urea Nitrogen 17 mg/dL (8-23); Calcium 9.1 mg/dL (8.6-10.3); Carbon Dioxide 28 mEq/L (23-29); Chloride 111 mEq/L (98-107); Glucose 182 mg/dL (70-105); Osmolality,Calculated 306 (280-300); Potassium 3.5 mEq/L (3.5-5.1); Sodium 145 mEq/L (136-145); eGFR For African Americans > 60 (> 60); eGFR For Non-African Americans > 60 (> 60)
[2020-03-09] MEDS: Insulin LISPRO 300 UNITS/3 ML VIAL SUBQ SCH ×3 (00:50→15:57)
[2020-03-09 05:14] LABS: BUN/Creatinine Ratio 28 (6-26); Blood Urea Nitrogen 15 mg/dL (8-23); Calcium 8.9 mg/dL (8.6-10.3); Carbon Dioxide 27 mEq/L (23-29); Chloride 109 mEq/L (98-107); Glucose 177 mg/dL (70-105); Magnesium 1.7 mg/dL (1.6-2.6); Osmolality,Calculated 301 (280-300); Phosphorous 2.3 mg/dL (2.7-4.5); Potassium 3.4 mEq/L (3.5-5.1); Sodium 143 mEq/L (136-145); eGFR For African Americans > 60 (> 60); eGFR For Non-African Americans > 60 (> 60)
[2020-03-09] MEDS: Potassium Chloride 20 MEQ in D5% in Water 1,000 ML IVC SCH (06:30)
[2020-03-09] MEDS: *HR* Heparin 5,000 UNIT/ML VIAL SQ SCH (06:31)
[2020-03-09] MEDS ORDERED: Rivastigmine Patch 4.6 MG PATCH.TD24 TD SCH (09:00)
[2020-03-09] MEDS: Famotidine 20 MG/2 ML VIAL IVP SCH (11:34)
[2020-03-09] MEDS: Rivastigmine Patch 4.6 MG PATCH.TD24 TD SCH ×2 (11:34→11:43)
[2020-03-09] MEDS ORDERED: Atropine 1% Opth Drops 100 DROP/5 ML BOTTLE SL PRN (16:33)
[2020-03-09] MEDS ORDERED: *HR* LORazepam Oral Conc 2 MG/ML SL PRN (16:33)
[2020-03-09] MEDS ORDERED: Morphine Sulfate Oral CONC 10 MG/0.5 ML ORAL.SYG SL PRN (16:33)
[2020-03-09] MEDS ORDERED: Scopolamine Patch 1.5 MG PATCH.TD72 TD SCH (17:00)
[2020-03-10 07:52] VITALS: BP 113/59
[2020-03-10] MEDS: Rivastigmine Patch 4.6 MG PATCH.TD24 TD SCH (07:59)
[2020-03-10] MEDS: Famotidine 20 MG/2 ML VIAL IVP SCH (08:00)
== END 2020-03-10 12:16 | disposition hospice, inpatient (51) ==
LOC: 3ANU
PROVIDERS: ADMIT Surgery; ATTEND Student in an Organized Health Care Education/Training Program

== ENCOUNTER 2020-03-10 11:11 | Inpatient (IN) ==
[2020-03-10] MEDS ORDERED: Atropine 1% Opth Drops 100 DROP/5 ML BOTTLE SL PRN (13:02)
[2020-03-10] MEDS ORDERED: Ondansetron 4 MG/2 ML VIAL IVP PRN (13:02)
[2020-03-10] MEDS ORDERED: Bisacodyl 10 MG RECTAL SUPPOSITORY RC PRN (13:02)
[2020-03-10] MEDS ORDERED: Scopolamine Patch 1.5 MG PATCH.TD72 TD SCH (13:15)
[2020-03-10] MEDS: Morphine Sulfate Oral CONC 10 MG/0.5 ML ORAL.SYG PO PRN (23:55)
[2020-03-11] MEDS: Rivastigmine Patch 4.6 MG PATCH.TD24 TD SCH (09:27)
[2020-03-11] MEDS: Morphine Sulfate Oral CONC 10 MG/0.5 ML ORAL.SYG PO PRN ×3 (09:27→19:55)
[2020-03-11] MEDS: *HR* LORazepam 2 MG/ML VIAL IVP PRN (19:53)
[2020-03-12] MEDS: Morphine Sulfate Oral CONC 10 MG/0.5 ML ORAL.SYG PO PRN ×3 (07:42→21:51)
[2020-03-12] MEDS: *HR* LORazepam 2 MG/ML VIAL IVP PRN ×3 (07:42→22:47)
[2020-03-12] MEDS: Rivastigmine Patch 4.6 MG PATCH.TD24 TD SCH (07:52)
[2020-03-13] MEDS: Morphine Sulfate Oral CONC 10 MG/0.5 ML ORAL.SYG PO PRN ×3 (00:11→07:26)
[2020-03-13] MEDS: *HR* LORazepam 2 MG/ML VIAL IVP PRN ×2 (02:25→07:25)
[2020-03-13] MEDS: Rivastigmine Patch 4.6 MG PATCH.TD24 TD SCH (07:25)
[2020-03-13 07:31] VITALS: BP 59/36
== END 2020-03-13 12:27 | disposition expired ==
LOC: 2ANU 12:26
PROVIDERS: ADMIT Internal Medicine Hospice and Palliative Medicine; ATTEND Internal Medicine Hospice and Palliative Medicine